=== PATIENT | male | born 1975 | race Two or more races ===

== ENCOUNTER → 2022-02-22 08:03 | Outpatient (BNVA) | payer OTHER, SELFPAY | PROVIDERS: PCP Internal Medicine; Visit Provider Internal Medicine Rheumatology | DX: M47.899 Other spondylosis, site unspecified (principal); R68.2 Dry mouth, unspecified | CPT/HCPCS: 99202 ==

== ENCOUNTER 2022-04-10 12:55 | Outpatient (REF) | payer OTHER, SELFPAY ==
[2022-04-10 14:23] LABS: Anion Gap 13 (12-20); Blood Urea Nitrogen 15 mg/dL (9-16); C Reactive Protein 0.27 mg/dL (< or = 0.50); Calcium 9.8 mg/dL (8.4-10.2); Carbon Dioxide 25 mmol/L (22-29); Chloride 105 mmol/L (96-108); Estimated Glomerular Filt Rate > 60; Glucose Random 94 mg/dL (60-115); Sodium 139 mmol/L (135-145)
[2022-04-10 14:30] LABS: Erythrocyte Sedimentation Rate 10 MM/HR (0-15)
[2022-04-12 14:07] LABS: Anti Nuclear Antibody Screen NEGATIVE (NEGATIVE)
[2022-04-14 15:22] LABS: Antibody to SS-A Antigen <1.0 NEG AI (<1.0 NEG); Antibody to SS-B Antigen <1.0 NEG AI (<1.0 NEG)
== END 2022-04-10 12:56 | disposition home or self-care (01) ==
LOC: HO.LAB 12:55
PROVIDERS: PCP Internal Medicine; Visit Provider Internal Medicine Rheumatology
DX: M47.899 Other spondylosis, site unspecified (principal); R68.2 Dry mouth, unspecified
CPT/HCPCS: 36415; 80048; 85652; 86038; 86039; 86140; 86235; 99202

== ENCOUNTER 2022-08-08 09:08 | Day surgery (SDC) | payer OTHER, SELFPAY ==
--- NOTE | 2022-08-07 12:18 | HO.ANESPROP2 ---
Documented by User: Marilu Simon NP 08/07/22 12:19 HPI - Anesthesia Eval Consult details Narrative: 47yo M for Colonoscopy PMFSH Active Problems Active Problems: All Active Problems (Updated 02/22/22 @ 08:48 by Torsten Hughes MD) Dry mouth (Acute) Obesity (BMI 30-39.9) (Acute) HLA-B27 spondyloarthropathy (Acute) Blurred vision, bilateral (Acute) Past Medical History Medical History Dry mouth HLA-B27 spondyloarthropathy Obesity (BMI 30-39.9) Family History Family History Mother No problems noted. Surgical History Surgical History No pertinent past surgical history Social History Social History Patient Tobacco Use Status: Former Tobacco user Tobacco use type: Cigarette e-Cigarette/Vaping Use: Never Used Second Hand Smoke Exposure: No Use of substances other than those prescribed or required for medical reasons: No Are you DNR?: No Advance Directives: No Advance Directives Information Provided: Yes service: No Current occupational status: employed Current occupation: contruction/ rt handed Cognitive needs: No Hearing needs: No Vision needs: No Meds Allergies Allergy/AdvReac Type Severity Reaction Status Date / Time seasonal Allergy Unknown Unknown Uncoded 02/22/22 08:06 Exam Exam Date and Time: August 07, 2022 1218 Pertinent Lab Results Pertinent Lab Results: Laboratory Tests 04/10/22 13:05 Sodium 139 Potassium 4.0 Chloride 105 Carbon Dioxide 25 BUN 15 Creatinine 0.98 Assessment and Plan Assessment Anesthesia Assessment: Chart Reviewed Documented by User: Michelle Barclay MD 08/08/22 09:45 PMFSH Past Medical History Medical History Dry mouth HLA-B27 spondyloarthropathy Obesity (BMI 30-39.9) Family History Family History Mother No problems noted. Family history of problems with anesthesia: No Surgical History Surgical History No pertinent past surgical history History of Problems with Anesthesia: No Social History Social History Patient Tobacco Use Status: Former Tobacco user Tobacco use type: Cigarette e-Cigarette/Vaping Use: Never Used Second Hand Smoke Exposure: No Use of substances other than those prescribed or required for medical reasons: No Are you DNR?: No Advance Directives: No Advance Directives Information Provided: Yes service: No Current occupational status: employed Current occupation: contruction/ rt handed Cognitive needs: No Hearing needs: No Vision needs: No Meds Allergies Allergy/AdvReac Type Severity Reaction Status Date / Time seasonal Allergy Unknown Unknown Uncoded 02/22/22 08:06 Exam Airway Mallampati Class: II TM Dist: >3cm Neck ROM: Full Heart: rrr Lungs: cta Assessment and Plan Assessment Anesthesia Assessment: Anesthesia Plan Discussed and Chart Reviewed Final Anesthetic Review Family History of Problems with Anesthesia: No History of Problems with Anesthesia: No NPO: Yes ASA Class: II Final Preanesthetic Review: No Changes in Pt Med Stat, Meds/Allgs Chart Reviewed and Consent Obtained/Reviewed Patient Risk: Intermediate Procedure Risk: Intermediate Anesthetic Plan Anesthetic Plan: MAC: Disposition: Standard PACU
--- NOTE | 2022-08-08 09:09 | MHC.SHP ---
Pre-Procedural Eval Section A Date of Service: 08/08/22 Section B Chief Complaint: screening Relevant Family History (Specify if Yes): No Relevant Social History: None Present Medications: see Short Stay Collaborative assessment Medical History: Significant History (Dry mouth HLA-B27 spondyloarthropathy Obesity (BMI 30-39.9)) History of Previous Operations: No relevant previous surgery Allergies: Allergies Allergy/AdvReac Type Severity Reaction Status Date / Time seasonal Allergy Unknown Unknown Uncoded 02/22/22 08:06 Review of Systems Sugical H&P ROS: Negative: Constitution, Cardiovascular, Respiratory, Neurological, Psychiatric, Hem-Onc, Allergic/Immunologic, Gastrointestinal, Genitourinary, Musculoskeletal, Integumentary, Endocrine and Eyes/Ears/Nose/Throat Exam Surgical H&P Exam: Normal: HEENT, Normal: Heart, Normal: Lungs, Normal: Extremities, Normal: Abdomen, Normal: Skin and Normal: Neurological Plan Diagnosis/Plan: Unchanged I have reviewed the history and physical and performed a pertinent physical examination on my patient. No changes have occurred unless specified.
[2022-08-08 09:17] VITALS: BMI 33.4
[2022-08-08 09:32] VITALS: BP 146/80; PULSE 60; RESP 16; TEMP 36.6; O2SAT 96
[2022-08-08] MEDS: Lactated Ringers 1,000 ML 100 ML IVCONT (09:43)
--- NOTE | 2022-08-08 09:45 | W.PM.OPN ---
Operative Note Operative Note Date of Service: 08/08/22 Narrative: Operative Information Procedure Description: Colonoscopy Indication: screening Anesthesia: MAC COLONOSCOPY Instrument: Olympus variable stiffness pediatric scope 190L Colonoscopy Monitoring: Vital signs and clinical assessment, continuous EKG monitoring, Pulse oximetry, Carbon Dioxide monitoring and blood pressure monitoring were done throughout the procedure. Colon withdrawal time was 8 minutes. Procedure: The patient was placed in the left lateral decubitis position and pre-procedure medications were administered. After a digital rectal examination of the ano-rectum, the video colonoscope was inserted into the rectum and advanced through the colon to the cecum/TI. The colonoscope was slowly withdrawn in a retrograde panoramic fashion and the colon mucosa was carefully examined including a retroflexed view of the rectum. Findings and interventions are described below. Procedure Difficulty: easy Findings: Terminal Ileum-normal Cecum:normal Ascending Colon: normal Transverse Colon -normal Descending Colon:normal Sigmoid Colon: moderate severe diverticulosis with luminal narrowing and mucosal hypertrophy Rectum: Retroflexion with small internal hemorrhoids, grade I Anorectum - normal Colon preparation: [place] Bowel Preparation Scale Right colon; 2 Transverse colon: 3 Left colon; 2 (0 = Unprepared colon segment with mucosa not seen due to solid stool that cannot be cleared. 1 = Portion of mucosa of the colon segment seen, but other areas of the colon segment not well seen due to staining, residual stool and/or opaque liquid. 2 = Minor amount of residual staining, small fragments of stool and/or opaque liquid, but mucosa of colon segment seen well. 3 = Entire mucosa of colon segment seen well with no residual staining, small fragments of stool or opaque liquid) Impression and Post Procedure Diagnosis: internal hemorrhoids diverticular disease Plan: High fiber diet leaflet Avoid straining at stool, epsom salts and sitz bath, anusol supps or cream Repeat Colonoscopy in 10 years or earlier if clinically indicated Above findings were reviewed with the patient and relevant handouts were provided if indicated.
[2022-08-08 10:06] VITALS: BP 129/70; PULSE 78; RESP 16; TEMP 36.6; O2SAT 97
[2022-08-08 10:21] VITALS: BP 122/70; PULSE 80; RESP 16; TEMP 36.6; O2SAT 97
== END 2022-08-08 10:43 | disposition home or self-care (01) ==
PROVIDERS: Visit Provider Internal Medicine Gastroenterology
PROC: 0DJD8ZZ Inspection of Lower Intestinal Tract, Via Natural or Artificial Opening Endoscopic (ICD-10-PCS; CPT 45378; principal; 2022-08-08 10:10)
DX: Z12.11 Encounter for screening for malignant neoplasm of colon (principal); K57.30 Diverticulosis of large intestine without perforation or abscess without bleeding; K64.0 First degree hemorrhoids; J30.2 Other seasonal allergic rhinitis; R68.2 Dry mouth, unspecified; Z87.891 Personal history of nicotine dependence
CPT/HCPCS: 45378

== ENCOUNTER → 2022-08-24 12:36 | Outpatient (BNVA) | payer OTHER, SELFPAY | PROVIDERS: Visit Provider Nurse Practitioner Family | DX: K57.90 Diverticulosis of intestine, part unspecified, without perforation or abscess without bleeding (principal); Z98.890 Other specified postprocedural states | CPT/HCPCS: 99212 ==

== ENCOUNTER 2023-01-15 08:14 | Outpatient (REF) | payer OTHER, SELFPAY ==
[2023-01-15 08:44] LABS: MANUAL DIFF FLAG NO
[2023-01-15 09:42] LABS: Basophils Absolute Auto 0.1 X10*3/uL (0.0-0.2); Basophils Percent Auto 1.3 % (0-2); Eosinophils Absolute Auto 0.7 X10*3/uL (0.0-0.4); Eosinophils Percent Auto 9.6 % (0-4); Hematocrit 54.1 % (42.0-52.0); Hemoglobin 17.6 g/dl (14.0-18.0); Imm Gran Abs Auto 0.02 X10*3/uL (0.00-0.03); Imm Gran Pct Auto 0.3 % (0.0-0.4); Lymphocytes Absolute Auto 1.7 X10*3/uL (1.2-4.9); Lymphocytes Percent Auto 25.4 % (20-40); Mean Corpuscular HGB Conc 32.5 g/dl (31.0-36.0); Mean Corpuscular Hemoglobin 27.8 pg (27.0-33.0); Mean Corpuscular Volume 85.6 fL (80.0-98.0); Mean Platelet Volume 11.5 fL (9.4-12.4); Monocytes Absolute Auto 0.8 X10*3/uL (0.1-1.2); Monocytes Percent Auto 11.8 % (2-11); Neutrophils Absolute Auto 3.5 x10*3/uL (2.0-8.3); Neutrophils Percent Auto 51.6 % (45-73); Platelet Count 334 X10*3/uL (160-400); Red Blood Count 6.32 X10*6/uL (4.60-5.80); Red Cell Distribution Width 14.1 % (11.0-16.0); White Blood Count 6.8 X10*3/uL (4.8-10.8)
[2023-01-15 09:53] LABS: Appearance Urine Clear; Color Urine Yellow; Glucose Urine UA Negative (Negative); Leukocyte Esterase Urine Negative (Negative); Nitrite Urine Negative (Negative); UMIC TRIGGER UACC YES; Urine Blood Negative (Negative); Urine Ketones Negative (Negative); Urine Protein 30 (1+) mg/dL (Neg-Trace)
[2023-01-15 09:56] LABS: Bacteria Urine None Seen (None Seen); Hyaline Casts Urine 0-2 /LPF (0-2); RBC Urine 0-2 /HPF (0-2); Squamous Epithelial Cell Urine 0-2 /HPF (0-2); WBC Urine 0-5 /HPF (0-5)
[2023-01-15 10:47] LABS: Alanine Aminotransferase 59 U/L (0-40); Albumin Level 4.3 g/dL (3.5-5.0); Alkaline Phosphatase 65 U/L (39-117); Anion Gap 16 (12-20); Aspartate Amino Transferase 41 U/L (5-37); Bilirubin Total 0.7 mg/dL (0.0-1.0); Blood Urea Nitrogen 11 mg/dL (9-16); C Reactive Protein 0.16 mg/dL (< or = 0.50); Calcium 9.9 mg/dL (8.4-10.2); Carbon Dioxide 23 mmol/L (22-29); Chloride 106 mmol/L (96-108); Cholesterol 229 mg/dL; Estimated Glomerular Filt Rate > 60; Glucose Fasting 102 mg/dL (60-99); HDL Cholesterol 24 mg/dL; LDL Cholesterol Calculated 174 mg/dl; Potassium 4.7 mmol/L (3.3-5.1); Rheumatoid Factor < 13.0 IU/mL (<15.0); Sodium 140 mmol/L (135-145); Total Protein 7.8 g/dL (6.5-8.0); Triglycerides 159 mg/dL
[2023-01-15 10:49] LABS: Erythrocyte Sedimentation Rate 2 MM/HR (0-15)
[2023-01-15 10:50] LABS: Prostate Specific Antigen Scr 0.64 ng/mL (<0.05-4.0); TSH reflex Free T4 3.64 uIU/mL (0.32-4.0); Vitamin B12 894 pg/mL (200-900); Vitamin D 25-OH Total 21.9 ng/mL (>30)
[2023-01-20 09:04] LABS: Anti Nuclear Antibody Screen NEGATIVE (NEGATIVE)
[2023-01-21 00:43] LABS: Vitamin A 59 mcg/dL (38-98)
== END 2023-01-15 08:15 | disposition home or self-care (01) ==
LOC: HO.LAB 08:14
PROVIDERS: PCP Internal Medicine; Visit Provider Internal Medicine
DX: Z00.00 Encounter for general adult medical examination without abnormal findings (principal); M47.899 Other spondylosis, site unspecified; E53.8 Deficiency of other specified B group vitamins; E78.00 Pure hypercholesterolemia, unspecified; E55.9 Vitamin D deficiency, unspecified; R68.2 Dry mouth, unspecified; H04.123 Dry eye syndrome of bilateral lacrimal glands; R30.0 Dysuria
CPT/HCPCS: 36415; 80053; 80061; 81001; 82306; 82607; 82746; 84153; 84443; 84590; 85025; 85652; 86038; 86039; 86140; 86431

== ENCOUNTER 2023-07-10 12:36 | Outpatient (AMB) | payer OTHER, SELFPAY ==
--- NOTE | 2023-07-10 12:39 | A.OFFPC_ITS ---
Vital Signs 07/10/23 12:40 Height 5 ft 8 in Weight 220 lb BMI 33.4 BP 164/112 H Blood Pressure Location Lt brachial Position Sitting Intake Visit Reasons: HTN, hyperlipidemia, elevated LFTs Intake Note: Patient here for a follow up htn, Hyperlipidemia, elevated LFTs Business Dean Required: No Accompanied by: Self / Same As Patient Allergies seasonal Allergy (Unknown, Uncoded 07/10/23 12:58) Unknown Medication List - Last Reconciled 07/10/23 by Alen Shen MD Tobacco use date assessed: 04/09/23 Dental Screening Dental Screen Date: 07/10/23 Did you have a dental visit in the last 12 months?: Yes Did you have a dental problem in the last 6 months where you did not have access to dental care?: No Was dental information given to patient?: Patient has dentist HPI HTN, hyperlipidemia, elevated LFTs HPI Details Patient comes in today for his follow up visit States that he feels okay Admits that he has not been taking his Lisinopril in the past couple of months - states that he just keeps forgetting to take them Also still has recurrent sores / lesions on his lower lip - would like to get a refill on the magic mouthwash solution that he had before as he states that they helped Has also been breaking out in a rash repeatedly over both of his arms - wants to know if he should see dermatology for these He denies any headaches or dizziness Denies any chest pains, no SOB No nausea/vomiting, no abdominal pain No change in bowel habits noted Did not get his follow up labs done prior to his appointment today COUNT INCLUDES [facility] Medical History Elevated LFTs Mixed hyperlipidemia Benign essential hypertension Diverticulosis Dry mouth Obesity (BMI 30-39.9) HLA-B27 spondyloarthropathy Surgical History Hx of colonoscopy Family History Mother No problems noted. Social History Housing: House Patient Tobacco Use Status: Former Tobacco user Tobacco use type: Cigarette e-Cigarette/Vaping Use: Never Used Second Hand Smoke Exposure: No service: No Current occupational status: employed Current occupation: contruction/ rt handed Current occupational exposures/hazards: No Cognitive needs: No Hearing needs: No Vision needs: No Questionnaire Thrive Questionnaire Date Thrive assessed: 04/09/23 DEANNA-7 AMB Questionnaire DEANNA-7 Date DEANNA - 7 assessed: 07/10/23 Feeling nervous, anxious, or on edge: 0 = Not at all Not being able to stop or control worryin = Not at all Worrying too much about different things: 0 = Not at all Trouble relaxin = Not at all Being so restless that it is hard to sit still: 0 = Not at all Becoming easily annoyed or irritable: 0 = Not at all Feeling afraid as if something awful might happen: 0 = Not at all Total DEANNA-7 score (0-4 normal; 5-9 mild; 10-14 moderate; 15-21 severe): 0 Source: Developed by Drs. Kelvin Nunez, Alexandria Ruth, Haroldo Ayala and colleagues, with an educational cierra from [place] [employer]. Review of Systems Const Denies fatigue, Denies fever(s) and Denies headache(s) ENT Details: (+) recurrent sores over the inner aspect of the lower lip Denies dysphagia, Denies dizziness, Denies otalgia, Denies headache(s), Denies neck pain, Denies odynophagia and Denies sore throat Card Denies chest pain, Denies rapid heart rate, Denies irregular heart rhythm, Denies palpitations and Denies dyspnea Resp Denies chest congestion, Denies cough, Denies dyspnea and Denies wheezing GI Denies abdominal pain, Denies constipation, Denies dysphagia, Denies heartburn, Denies diarrhea, Denies nausea, Denies odynophagia and Denies vomiting Denies dysuria and Denies urinary frequency Musc Reports back pain (on and off over the lower back), Reports arthralgias (on and off, involving multiple joints), Denies joint swelling and Denies neck pain Skin/Breast Reports rash (recurrent, over both hands and arms) Neuro Denies dizziness and Denies headache(s) Endo Denies fatigue and Denies palpitations Aller/Immun Denies wheezing Physical exam (Primary Care) Vital Signs: Last Vital Signs BP 164/112 H 09/13/23 12:40 BMI result Body Mass Index 33.4 Tobacco/Smoking Status: Tobacco use Status Tobacco use date assessed 04/09/23 07/10/23 12:45 Patient Tobacco Use Status Former Tobacco user 07/10/23 12:45 Tobacco use type Cigarette 07/10/23 12:45 e-Cigarette/Vaping Use Never Used 07/10/23 12:45 Thrive Assessment: Date of Thrive Assessment Date Thrive assessed 04/09/23 07/10/23 12:45 Const General: no acute distress and alert HENMT Ears: TM's normal bilaterally and EAC's normal Throat: Yes posterior oropharynx normal and Yes tonsils normal (no TP selvin estion) Neck Neck: Yes no lymphadenopathy and Yes supple Thyroid: Thyroid normal Resp Auscultation: clear to auscultation bilaterally, no rales and no wheezes Cardio Rate: regular rate Rhythm: regular rhythm Heart sounds: no murmurs GI Palpation (GI): Soft to palpation and nontender Auscultation: normal bowel sounds Back/Spine/Pelvis Thoracic/Lumbar Spine: lumbar spinal tenderness (mild) Skin Other: (+) scattered erythematous streaky rash over both forearms and hands Extrem General: Yes no clubbing, cyanosis or edema Right upper extremity: shoulder/upper arm Details: tenderness and normal ROM Right lower extremity: knee Details: tenderness and normal ROM; no swelling Left lower extremity: knee Details: tenderness and normal ROM; no swelling Assessment and Plan Assessment & Plan (1) Benign essential hypertension: Code(s): I10 - Essential (primary) hypertension Plan: Reinforced low sodium diet - goal is systolic BP of 120 mm or less Have imstructed him to START BACK on taking his Lisinopril 2.5 mg QD for now and that he has to TAKE IT DAILY so we can determine after a few weeks if we need to adjust his dose further or not Cautioned that his blood pressure is very HIGH right now and he is at risk of either a coronary (heart attack) or cerebrovascular (stroke) event with where his blood pressure is at right now and we need to control his BP JOSE RAMON Patient is instructed to continue monitoring his blood pressure regularly (2) Mixed hyperlipidemia: Code(s): E78.2 - Mixed hyperlipidemia Plan: He is cautioned that his cholesterol levels were elevated, with his LDL cholesterol at 174 mg/dl and total cholesterol at 229 mg/dl when they were last checked in December 2022 and that he should get his labs rechecked JOSE RAMON States that he is going to the lab after his appointment today to get these done Reinforced low cholesterol diet (3) Elevated LFTs: Code(s): R79.89 - Other specified abnormal findings of blood chemistry Plan: Is most likely related to his weight (fatty liver) and high cholesterol levels and reminded again that these should gradually improve with weight loss and be tter control of his cholesterol numbers Will have him recheck his labs and LFTs JOSE RAMON (now) for follow up Per request, will also check him for hepatitis C (4) HLA-B27 spondyloarthropathy: Comment: 2013 he had knee swelling and was on methotrexate for about a year. One episode of painful eye swelling possibly iritis. Code(s): M47.899 - Other spondylosis, site unspecified Plan: Was following up with rheumatology (Dr. Malagon) at [facility] [place] and treated with Methotrexate years ago Was referrred to and seen by Dr. 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 Have recommended previously that he try wearing at least some rubber gloves to help minimize his skin exposure to chemical agents Will check him again for HLA-B27 Ag level for follow up (5) Rash: Code(s): R21 - Rash and other nonspecific skin eruption Plan: Was previously treated with Mometasone 0.1% cream QD PRN, which he states helped only partially Will switch him over to Traimcinolone 0.5% cream TID PRN for now Will also refer him to dermatology for further evaluation and management (6) Lesion of buccal mucosa: Code(s): K13.70 - Unspecified lesions of oral mucosa Plan: Per request, will refill his Rx for Magic Mouthwash to use for his mucosal lesions PRN Will need to consider further work ups if his oral/mucosal sores keep recurring - may be part of his constellation of spondyloarthropathy symptoms (7) Arthralgia: Code(s): M25.50 - Pain in unspecified joint Qualifiers: Joint pain location: unspecified Qualified Code(s): M25.50 - Pain in unspecified joint Plan: Previous labs done for arthralgia work ups have so far all come back negative Advised that his joint symptoms are most likely due to degenerative arthritis/OA (8) Obesity (BMI 30-39.9): Code(s): E66.9 - Obesity, unspecified Plan: Reinforced diet/exercise as tolerated/lose weight Plan Follow up in 6 weeks Orders: Orders HLA B27 Today M47.899 - Other spondylosis, site unspecified Referrals Dermatology Referral R21 - Rash and other nonspecific skin eruption Medications: New triamcinolone acetonide 0.5% 1 appl topical TID PRN 30 grams 1RF rash Refilled lisinopril 2.5 mg PO DAILY 30 days 30 tabs 2RF Magic Mouthwash Diphen/Lido/Antacid 1:1:1 Lidocaine Viscous 2 % 80mL; diphenhydramine 12.5 mg/5 mL 80mL; aluminum-mag hydrox-simeth [id number]/5mL 80mL swish and spit out 5 mL PO TID 14 days 240 mL 1RF R21 - Rash and other nonspecific skin eruption Coding Level of Care Code Est Pt Level 4 (26661) Diagnoses Benign essential hypertension I10 Mixed hyperlipidemia E78.2 Elevated LFTs R79.89 HLA-B27 spondyloarthropathy M47.899 Rash R21 Lesion of buccal mucosa K13.70 Arthralgia, unspecified joint M25.50 Joint pain location: unspecified Obesity (BMI 30-39.9) E66.9
[2023-07-10 12:40] VITALS: BP 164/112; BMI 33.4
== END 2023-07-10 13:16 | disposition home or self-care (01) ==
PROVIDERS: PCP Internal Medicine; Visit Provider Internal Medicine
DX: I10 Essential (primary) hypertension (principal); E78.2 Mixed hyperlipidemia; E66.9 Obesity, unspecified; Z68.33 Body mass index [BMI] 33.0-33.9, adult; R79.89 Other specified abnormal findings of blood chemistry; M47.899 Other spondylosis, site unspecified; R21 Rash and other nonspecific skin eruption; K13.70 Unspecified lesions of oral mucosa; M25.50 Pain in unspecified joint
CPT/HCPCS: 99214

== ENCOUNTER 2023-07-10 13:22 | Outpatient (REF) | payer OTHER, SELFPAY ==
[2023-07-10 13:48] LABS: MANUAL DIFF FLAG NO
[2023-07-10 13:57] LABS: Basophils Absolute Auto 0.1 X10*3/uL (0.0-0.2); Basophils Percent Auto 0.8 % (0-2); Eosinophils Absolute Auto 0.6 X10*3/uL (0.0-0.4); Eosinophils Percent Auto 10.2 % (0-4); Hematocrit 50.3 % (42.0-52.0); Hemoglobin 16.7 g/dl (14.0-18.0); Imm Gran Abs Auto 0.01 X10*3/uL (0.00-0.03); Imm Gran Pct Auto 0.2 % (0.0-0.4); Lymphocytes Absolute Auto 1.4 X10*3/uL (1.2-4.9); Lymphocytes Percent Auto 22.3 % (20-40); Mean Corpuscular HGB Conc 33.2 g/dl (31.0-36.0); Mean Corpuscular Hemoglobin 28.6 pg (27.0-33.0); Mean Corpuscular Volume 86.1 fL (80.0-98.0); Mean Platelet Volume 10.9 fL (9.4-12.4); Monocytes Absolute Auto 0.7 X10*3/uL (0.1-1.2); Monocytes Percent Auto 10.7 % (2-11); Neutrophils Absolute Auto 3.4 x10*3/uL (2.0-8.3); Neutrophils Percent Auto 55.8 % (45-73); Platelet Count 334 X10*3/uL (160-400); Red Blood Count 5.84 X10*6/uL (4.60-5.80); Red Cell Distribution Width 13.1 % (11.0-16.0); White Blood Count 6.1 X10*3/uL (4.8-10.8)
[2023-07-10 14:55] LABS: Alanine Aminotransferase 44 U/L (0-40); Albumin Level 4.4 g/dL (3.5-5.0); Alkaline Phosphatase 66 U/L (39-117); Anion Gap 13 (12-20); Aspartate Amino Transferase 33 U/L (5-37); Bilirubin Total 0.6 mg/dL (0.0-1.0); Blood Urea Nitrogen 12 mg/dL (9-16); Calcium 9.9 mg/dL (8.4-10.2); Carbon Dioxide 24 mmol/L (22-29); Chloride 106 mmol/L (96-108); Cholesterol 210 mg/dL (<200); Estimated Glomerular Filt Rate > 60; Glucose Fasting 88 mg/dL (60-99); HDL Cholesterol 26 mg/dL (>40); LDL Cholesterol Calculated 145 mg/dL (<100); Potassium 3.7 mmol/L (3.3-5.1); Sodium 139 mmol/L (135-145); Total Protein 8.1 g/dL (6.5-8.0); Triglycerides 199 mg/dL (<150)
[2023-07-10 15:09] LABS: TSH reflex Free T4 1.83 uIU/mL (0.32-4.0); Vitamin D 25-OH Total 29.7 ng/mL (>30)
[2023-07-11 05:17] LABS: ~HepC Num1 0.09 S/CO (0.00-0.79); ~Hepatitis C Antibody Nonreactive (Nonreactive)
[2023-07-11 05:29] LABS: HBc Num1 0.07 S/CO (0.00-0.79); HBsAGNum1 0.38 S/CO (0.00-0.99); Hepatitis B Core Antibody Nonreactive (Nonreactive); Hepatitis B Surface Antigen Negative (Negative); ~Hepatitis B Surface Antibody NONREACTIVE (Nonreactive)
[2023-07-12 01:29] LABS: Lyme Abs Screen <0.90 index
[2023-07-16 08:23] LABS: HLA B27 Positive (Negative)
== END 2023-07-10 13:23 | disposition home or self-care (01) ==
LOC: HO.LAB 13:22
PROVIDERS: PCP Internal Medicine; Visit Provider Internal Medicine
DX: M47.899 Other spondylosis, site unspecified (principal); M25.50 Pain in unspecified joint; R79.89 Other specified abnormal findings of blood chemistry; E78.00 Pure hypercholesterolemia, unspecified; E55.9 Vitamin D deficiency, unspecified; I10 Essential (primary) hypertension; T14.8XXA Other injury of unspecified body region, initial encounter; W57.XXXA Bitten or stung by nonvenomous insect and other nonvenomous arthropods, initial encounter
CPT/HCPCS: 36415; 80053; 80061; 82306; 84443; 85025; 86617; 86618; 86704; 86706; 86803; 86812; 87340

== ENCOUNTER 2023-08-21 14:44 | Outpatient (AMB) | payer OTHER, SELFPAY ==
[2023-08-21 14:47] VITALS: BP 132/100; PULSE 88; O2SAT 96; BMI 34.8
--- NOTE | 2023-08-21 14:47 | A.OFFPC_ITS ---
Vital Signs 08/21/23 14:47 Height 5 ft 8 in Weight 229 lb 2 oz BMI 34.8 BP 132/100 H Blood Pressure Location Lt brachial Position Sitting Pulse 88 Pulse Source Pulse Oximeter Pulse Oximetry (%) 96 Oxygen Delivery Method Room Air Intake Visit Reasons: uncontrolled HTN, hyperlipidemia Differential Repairer Required: No Accompanied by: Self / Same As Patient Allergies seasonal Allergy (Unknown, Uncoded 08/21/23 15:02) Unknown Medication List - Last Reconciled 08/21/23 by Alen Shen MD lisinopril 2.5 mg PO DAILY 30 days Magic Mouthwash Diphen/Lido/Antacid 1:1:1 5 mL PO TID 14 days triamcinolone acetonide 0.5% 1 appl topical TID PRN Tobacco use date assessed: 08/21/23 Dental Screening Dental Screen Date: 08/21/23 Did you have a dental visit in the last 12 months?: No Did you have a dental problem in the last 6 months where you did not have access to dental care?: No Was dental information given to patient?: No HPI uncontrolled HTN, hyperlipidemia HPI Details Patient comes in today for his follow up visit States that he feels okay He denies any headaches or dizziness Denies any chest pains, no SOB No nausea/vomiting, no abdominal pain No change in bowel habits noted Had his follow up labs done last month - to discuss his results [facility] Medical History Elevated LFTs Mixed hyperlipidemia Benign essential hypertension Diverticulosis Dry mouth Obesity (BMI 30-39.9) HLA-B27 spondyloarthropathy Surgical History Hx of colonoscopy Family History Mother No problems noted. Social History Housing: House Patient Tobacco Use Status: Former Tobacco user Tobacco use type: Cigarette e-Cigarette/Vaping Use: Never Used Second Hand Smoke Exposure: No service: No Current occupational status: employed Current occupation: contruction/ rt handed Current occupational exposures/hazards: No Cognitive needs: No Hearing needs: No Vision needs: No Questionnaire PHQ-9 Over the last 2 weeks, how often have you been bothered by any of the following problems? 1. Little interest or pleasure in doing things: not at all 2. Feeling down, depressed, or hopeless: not at all 3. Trouble falling or staying asleep, or sleeping too much: not at all 4. Feeling tired or having little energy: not at all 5. Poor appetite or overeating: not at all 6. Feeling bad about yourself - or that you are a failure or have let yourself or your family down: not at all 7. Trouble concentrating on things, such as reading the newspaper or watching television: not at all 8. Moving or speaking so slowly that other people could have noticed. Or the opposite - being so fidgety or restless that you have been moving around a lot more than usual: not at all 9. Thoughts that you would be better off or of hurting yourself in some way: not at all Total score: 0 Depression Screening Interpretation: Negative Depression Screening Done: Yes 42053 - PHQ-9 Billing: Yes Source: Developed by Drs. Kelvin Nunez, Alexandria Ruth, Haroldo Ayala and colleagues, with an educational cierra from [employer]. Thrive Questionnaire Date Thrive assessed: 08/21/23 I am a: Patient What is your living situation today?: I have a steady place to live Within the past 12 months, did the food you bought not last and you didn't have the money to get more?: Never true Within the past 12 months, did you worry whether your food would run out before you got money to buy more?: Never true Do you have trouble paying for medicines?: No Do you have trouble getting transportation to medical appointments?: No Do you have trouble paying your heating and electricity bill?: No Do you have trouble taking care of your child, family member or friend?: No Do you have trouble with day-to-day activities such as bathing, preparing meals, shopping, managing finances, etc.?: No Are you currently unemployed and looking for a job?: No Are you interested in more education?: No Please select the resources that you would like help with: None Currently or been in a relationship where the following occur: no concerns reported AUDIT C Alcohol Use Questionnaire (AUDIT-C) 1. How often do you have a drink containing alcohol?: Never 3. How often do you have six or more drinks on one occasion?: Never Total Score: 0 Score Reviewed/Action Taken: Yes DEANNA-7 AMB Questionnaire DEANNA-7 Date DEANNA - 7 assessed: 08/21/23 Feeling nervous, anxious, or on edge: 0 = Not at all Not being able to stop or control worryin = Not at all Worrying too much about different things: 0 = Not at all Trouble relaxin = Not at all Being so restless that it is hard to sit still: 0 = Not at all Becoming easily annoyed or irritable: 0 = Not at all Feeling afraid as if something awful might happen: 0 = Not at all Total DEANNA-7 score (0-4 normal; 5-9 mild; 10-14 moderate; 15-21 severe): 0 Source: Developed by Drs. Kelvin Nunez, Alexandria Ruth, Haroldo Ayala and colleagues, with an educational cierra from [employer]. Review of Systems Const Denies fatigue, Denies fever(s) and Denies headache(s) ENT Denies dysphagia, Denies dizziness, Denies otalgia, Denies headache(s), Denies neck pain, Denies odynophagia and Denies sore throat Card Denies chest pain, Denies rapid heart rate, Denies irregular heart rhythm, Denies palpitations and Denies dyspnea Resp Denies chest congestion, Denies cough, Denies dyspnea and Denies wheezing GI Denies abdominal pain, Denies constipation, Denies dysphagia, Denies heartburn, Denies diarrhea, Denies nausea, Denies odynophagia and Denies vomiting Denies difficulty urinating, Denies dysuria and Denies urinary frequency Musc Reports back pain (on and off over the lower back), Reports arthralgias (on and off, involving multiple joints), Denies joint swelling and Denies neck pain Skin/Breast Reports rash (recurrent, over both hands and arms) Neuro Denies dizziness and Denies headache(s) Endo Denies fatigue and Denies palpitations Aller/Immun Denies wheezing Physical exam (Primary Care) Vital Signs: Last Vital Signs Pulse 88 08/21/23 14:47 BP 132/100 H 08/21/23 14:47 Pulse Ox 96 08/21/23 14:47 Oxygen Delivery Method Room Air 08/21/23 14:47 BMI result Body Mass Index 34.8 Tobacco/Smoking Status: Tobacco use Status Tobacco use date assessed 08/21/23 08/21/23 14:53 Patient Tobacco Use Status Former Tobacco user 08/21/23 14:53 Tobacco use type Cigarette 08/21/23 14:53 e-Cigarette/Vaping Use Never Used 08/21/23 14:53 PHQ-9: PHQ-9 Score PHQ-9: Total score 0 08/21/23 15:03 Depression Screening Interpretation: Negative Thrive Assessment: Date of Thrive Assessment Date Thrive assessed 08/21/23 08/21/23 14:53 Currently or been in a relationship where the following occur: no concerns reported Const General: no acute distress and alert HENMT Ears: TM's normal bilaterally and EAC's normal Throat: Yes posterior oropharynx normal and Yes tonsils normal (no TP congestion) Neck Neck: Yes no lymphadenopathy and Yes supple Thyroid: Thyroid normal Resp Auscultation: clear to auscultation bilaterally, no rales and no wheezes Cardio Rate: regular rate Rhythm: regular rhythm Heart sounds: no murmurs GI Palpation (GI): Soft to palpation and nontender Auscultation: normal bowel sounds Back/Spine/Pelvis Thoracic/Lumbar Spine: lumbar spinal tenderness (mild) Skin Other: (+) scattered erythematous streaky rash over both forearms and hands Extrem General: Yes no clubbing, cyanosis or edema Right upper extremity: shoulder/upper arm Details: tenderness and normal ROM Right lower extremity: knee Details: tenderness and normal ROM; no swelling Left lower extremity: knee Details: tenderness and normal ROM; no swelling Results Reviewed Results Reviewed: Laboratory Tests 07/10/23 13:46 WBC 6.1 Hgb 16.7 Hct 50.3 Plt Count 334 Sodium 139 Potassium 3.7 D Creatinine 0.87 Estimated GFR > 60 Fasting Glucose 88 Calcium 9.9 AST 33 ALT 44 H Triglycerides 199 H Cholesterol 210 H LDL Cholesterol, Calc 145 H HDL Cholesterol 26 L Lyme Screen IgG & IgM <0.90 Lyme Progressive Test TNP Hep Bs Antigen Negative Hep Bs Antibody NONREACTIVE Hep B Core Total Ab Nonreactive Hepatitis C Ab (EIA) Nonreactive Assessment and Plan Assessment & Plan (1) Benign essential hypertension: Code(s): I10 - Essential (primary) hypertension Plan: Reinforced low sodium diet - goal is systolic BP of 120 mm or less Will now increase his Lisinopril to 5 mg QD as his BP, even though it has improved significantly from previous, is still elevated and not yet at goal Patient is reminded to continue monitoring his blood pressure regularly (2) Mixed hyperlipidemia: Code(s): E78.2 - Mixed hyperlipidemia Plan: Results of his labs done last month reviewed and discussed with patient - is advised that his cholesterol levels have improved from his numbers back in December 2022 although they are still elevated and not yet at goal Reinforced low cholesterol diet - patient would like to continue with diet modification for now Will recheck his labs and fasting lipids in 4 months for follow up (3) Elevated LFTs: Code(s): R79.89 - Other specified abnormal findings of blood chemistry Plan: Advised that his ALT is still slightly elevated but his LFTs overall have improved from previous Advised that these are most likely related to his weight (fatty liver) and high cholesterol levels and should continue to improve with weight loss and better control of his cholesterol numbers Reassured that his hepatitis profile done last month also came back negative Will recheck his LFTs in 4 months for follow up (4) HLA-B27 spondyloarthropathy: Comment: 2013 he had knee swelling and was on methotrexate for about a year. One episode of painful eye swelling possibly iritis. Code(s): M47.899 - Other spondylosis, site unspecified Plan: Was following up with rheumatology (Dr. Malagon) at [facility] [place] and treated with Methotrexate years ago Was referrred to and seen by Dr. 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 and have recommended/re minded him previously that he should try wearing at least some rubber gloves to help minimize his skin exposure to chemical agents Follow up with rheumatology as scheduled (5) Arthralgia: Code(s): M25.50 - Pain in unspecified joint Qualifiers: Joint pain location: unspecified Qualified Code(s): M25.50 - Pain in unspecified joint Plan: Previous labs done for arthralgia work ups have so far all come back negative Advised that his joint symptoms are most likely due to degenerative arthritis/OA (6) Rash: Code(s): R21 - Rash and other nonspecific skin eruption Plan: Continue Triamcinolone 0.5% cream TID PRN - was previously treated with Mometasone 0.1% cream QD PRN with only partial relief Follow up with dermatology as scheduled (7) Obesity (BMI 30-39.9): Code(s): E66.9 - Obesity, unspecified Plan: Reinforced diet/exercise as tolerated/lose weight Plan Follow up in 4 months Orders: Orders Comprehensive [place]. Panel Fast 4 Months E78.00 - Pure hypercholesterolemia, unspecified UA CC w/rflx Micro + Cult 4 Months R30.0 - Dysuria Vitamin D 25-OH Total 4 Months E55.9 - Vitamin D deficiency, unspecified Complete Blood Count Auto Diff 4 Months I10 - Essential (primary) hypertension Lipid Panel 4 Months E78.00 - Pure hypercholesterolemia, unspecified TSH reflex Free T4 4 Months E78.00 - Pure hypercholesterolemia, unspecified Medications: Changed From lisinopril 2.5 mg PO DAILY 30 days 30 tabs 2RF To lisinopril 5 mg PO DAILY 90 days 90 tabs 1RF Coding Level of Care Code Est Pt Level 4 (51016) Diagnoses Benign essential hypertension I10 Mixed hyperlipidemia E78.2 Elevated LFTs R79.89 HLA-B27 spondyloarthropathy M47.899 Arthralgia, unspecified joint M25.50 Joint pain location: unspecified Rash R21 Obesity (BMI 30-39.9) E66.9
== END 2023-08-21 15:15 | disposition home or self-care (01) ==
PROVIDERS: PCP Internal Medicine; Visit Provider Internal Medicine
DX: I10 Essential (primary) hypertension (principal); E78.2 Mixed hyperlipidemia; M47.899 Other spondylosis, site unspecified; R21 Rash and other nonspecific skin eruption
CPT/HCPCS: 99214